=== PATIENT | male | born 1965 | race Caucasian/White ===

== ENCOUNTER 2022-03-28 07:38 | Emergency (ER) | payer OTHER, SELFPAY ==
--- NOTE | ~2022-03-28 | CT_ITS ---
EXAMINATION: CT ABDOMEN AND PELVIS WITH CONTRAST CLINICAL INFORMATION: Perirectal or perianal abscess COMPARISON: None TECHNIQUE: Multidetector volumetric images were obtained from the superior aspect of the liver through the pubic symphysis following administration 85 mL of Omnipaque 350 intravenous contrast. Sagittal and coronal reformatted images were obtained on the technologist's workstation. Oral contrast: Yes This CT examination was performed using dose optimization techniques as appropriate, variously including the following: *Automated exposure control *Adjustment of mA and/or kV according to patient size (this includes techniques or standardized protocols for targeted exams where dose is matched to indication/reason for exam; i.e. extremities or head) *Use of iterative reconstruction technique DLP: 690 mGy-cm FINDINGS: LUNG BASES: The visualized lung bases are unremarkable. LIVER, GALLBLADDER, AND BILIARY TREE: The liver is normal in size, shape, and attenuation. No focal hepatic lesion or biliary ductal dilatation is present. The gallbladder is unremarkable with no evidence of radiopaque gallstones, gallbladder wall thickening, or obvious pericholecystic inflammatory changes. PANCREAS: Unremarkable. SPLEEN: Unremarkable. ADRENAL GLANDS: Unremarkable. KIDNEYS AND URETERS: There are bilateral renal cysts. No imaging follow-up needed. The kidneys are otherwise unremarkable. BLADDER: Unremarkable. GASTROINTESTINAL TRACT: There is a 2 x 2 x 2.8 cm left lateral perirectal or perianal abscess from the 1-5 o'clock axis. Small and large bowel is unremarkable. The appendix is not identified. There are no inflammatory changes in the right lower quadrant. ABDOMINAL WALL: No significant hernia is appreciated. LYMPH NODES: Normal. VASCULAR: Unremarkable. PELVIC VISCERA: There are soft tissue foreign bodies in the right iliacus muscle and iliac bone. The prostate gland is unremarkable. OSSEOUS STRUCTURES: Soft tissue foreign body in the right iliac bone as above. Degenerative disc disease at L2-L3 and L5-S1. CT/CT abdomen pelvis w con IMPRESSION: 2 x 2 x 2.8 cm left perianal or perirectal abscess. Bilateral renal cysts. Soft tissue foreign bodies in the right iliacus muscle and iliac bone. Fleischner guidelines were followed.
[2022-03-28 07:43] VITALS: BP 148/91; PULSE 104; RESP 16; TEMP 36; O2SAT 99; BMI 28.0
--- NOTE | 2022-03-28 08:35 | ED_ITS ---
HPI - Skin/Abscess/Foreign Bdy General Chief complaint: Skin/Abscess/Foreign Body Stated complaint: cyst Time Seen by Provider: 03/28/22 07:51 Source: patient Mode of arrival: ambulatory Limitations: no limitations History of Present Illness HPI narrative: patient presents emergency department for evaluation of a cyst to his buttock with onset days ago. He reports a history of a similar 4 years ago and he wait ed too long and had to have the cyst cut open and drained. He reports that it is painful to sit, has not had any active drainage, avoiding having a bowel movement because it hurts to strain. Denies fevers, chills, nausea, vomiting, diarrhea, constipation, abdominal pain, additional skin lesions. Onset (ago): day(s) Location: buttocks Severity scale (1-10): 8 Quality: constant Pain Consistency: constant Relieving factors: none Exacerbating factors: movement ( Prolonged sitting) Context: none Associated symptoms: denies other symptoms Treatments prior to arrival: none Related Data Previous Rx's Medication Instructions Recorded cephalexin 500 mg capsule 500 mg PO QID 7 Days #28 cap 03/28/22 docusate sodium 100 mg capsule 100 mg PO BID 7 Days #14 cap 03/28/22 (Colace) doxycycline hyclate 100 mg tablet 100 mg PO BID 7 Days #14 tab 03/28/22 oxycodone 5 mg tablet 5 mg PO Q8H PRN #10 tab 03/28/22 Allergies Allergy/AdvReac Type Severity Reaction Status Date / Time No Known Allergies Allergy Verified 03/28/22 07:42 Review of Systems Review of Systems: Constitutional: No weight loss, fever, chills, weakness or fatigue. Skin: positive buttock cyst. No rash or itching. Cardiovascular: No chest pain, chest pressure or chest discomfort. No palpitations or pedal edema. Respiratory: No shortness of breath, cough or sputum production. Gastrointestinal: No anorexia, nausea, vomiting or diarrhea. No abdominal pain or blood in stool. Genitourinary: No burning micturition. No urinary frequency or incontinence. Musculoskeletal: No muscle pain, back pain, joint pain or stiffness. Psychiatric: No depression or anxiety. Yes all other systems are reviewed and are negative PMFSH Past Medical History Attestation statement: The following information was validated with the patient. Source: old records reviewed Medical History No known health problems Social History Social History Advance Directives: No Advance Directives Information Provided: No Physical Exam Vital Signs: Vital Signs: Last Vital Signs Temp 98.1 F 03/28/22 12:07 Pulse 64 03/28/22 12:07 Resp 16 03/28/22 12:07 BP 120/79 03/28/22 12:07 Pulse Ox 97 03/28/22 12:07 BMI result Body Mass Index 28.0 Vital signs have been reviewed and appeared to be correct. hypertensive. Mild tachycardia.? Respiration rate normal. Temperature normal.? Oxygen saturation normal. Appearance: Alert.?Oriented to person, place and time. No acute distress.?Normal affect. Eyes: Pupils equal, round and reactive to light.? ENT: Pharynx normal.?? Neck: Normal inspection.? Neck supple.?? CVS: Heart sounds normal. Normal heart rate and rhythm.? Pulses normal.?? Respiratory: No respiratory distress.? Lung sounds clear to auscultation bilaterally?? Abdomen: Soft and non-tender. Normoactive bowel sounds. No pulsatile mass.?? Rectum: palpable induration to the left anal rugae, no erythema, fluctuance Skin: Skin warm and dry.? Normal skin color.?? Extremities: No lower extremity edema. Neuro: Moves all extremities spontaneously. Sensation intact bilaterally. CN II- XII intact. No focal neuro deficits. Ambulates with normal steady gait. Course Course Course Narrative: Patient is a 56-year-old male with no significant past medical history presentin g to the emergency department for evaluation of a cyst to buttock, physical exam concerning for perirectal versus perianal abscess, will obtain CBC, BMP, CT of the abdomen and pelvis to further evaluate. Reevaluation(s) Reevaluation #1: CBC reveals leukocytosis 13.2., BMP overall. Awaiting CT of the abdomen and pelvis time. Pain has improved after receiving Toradol. Time: 11:00 Reevaluation #2: CT of the abdomen and pelvis reveals a left perianal or perirectal abscess, consult placed to on-call surgery Dr. Hernández, Recommend incision and drainage bedside no outpatient follow-up in General surgery office in 1 week. Blood cultures and lactic acid obtain. ordered ceftriaxone 2 g IV Time: 14:33 Reevaluation #3: lactic acid was 1.6. remains hemodynamically stable, afebrile, no tachycardia. incision and drainage performed under aseptic technique, patient tolerated pr ocedure well, moderate amount of purulent drainage removed. Clean dry dressing applied. Discussed plan of care with patient for discharge home, oral antibiotics including Keflex and doxycycline for 1 week. Provided with Colace to take twice daily, advised Tylenol and ibuprofen as needed for pain, oxycodone to be used as needed for severe pain, MASS PAT checked. Provided with a work note. Provided contact information for general surgery office to schedule follow-up visit in 1 week. Discussed reasons to return back to the emergency department. All questions were answered and patient was discharged home with his in stable condition. Time: 16:00 MDM - Skin/Abscess/Foreign Bdy Medical Records Attestation: I reviewed the patient's medical records. Lab Data Attestation: I reviewed the patient's lab results. Result diagrams: 03/28/22 09:26 03/28/22 11:39 Labs: Lab Results 03/28/22 03/28/22 03/28/22 Range/Units 09:26 11:39 15:32 WBC 13.2 H (4.8-10.8) X10*3/uL RBC 4.72 (4.60-5.80) X10*6/uL Hgb 15.4 (14.0-18.0) g/dl Hct 46.8 (42.0-52.0) % MCV 99.2 H (80.0-98.0) fL MCH 32.6 (27.0-33.0) pg MCHC 32.9 (31.0-36.0) g/dl RDW 12.4 (11.0-16.0) % Plt Count 415 H (160-400) X10*3/uL MPV 8.8 L (9.4-12.4) fL Immature Gran % (Auto) 0.3 (0.0-0.4) % Neut % (Auto) 67.2 (45-73) % Lymph % (Auto) 17.4 L (20-40) % [place] % (Auto) 14.2 H (2-11) % Eos % (Auto) 0.5 (0-4) % Baso % (Auto) 0.4 (0-2) % Lymph # (Auto) 2.3 (1.2-4.9) X10*3/uL [place] # (Auto) 1.9 H (0.1-1.2) X10*3/uL Eos # (Auto) 0.1 (0.0-0.4) X10*3/uL Baso # (Auto) 0.1 (0.0-0.2) X10*3/uL Abs Immat Gran (auto) 0.04 H (0.00-0.03) X10*3/uL Absolute Neuts (auto) 8.9 H (2.0-8.3) x10*3/uL Absolute Nucleated RBC 0.000 (0.0-0.012) X10*3/uL Nucleated RBC % (auto) 0.0 (0.0-0.2) /100WBC Smear Tech's Comments VERIFIED Sodium 139 (135-145) mmol/L Potassium 4.1 (3.3-5.1) mmol/L Chloride 107 (96-108) mmol/L Carbon Dioxide 25 (22-29) mmol/L Anion Gap 11 L (12-20) BUN 8 L (9-16) mg/dL Creatinine 0.88 (0.5-1.4) mg/dL Estim Creat Clear Calc 99.5 Estimated GFR > 60 Random Glucose 93 (60-115) mg/dL Lactic Acid 1.6 (0.5-2.0) mmol/L Calcium 9.2 (8.4-10.2) mg/dL Imaging Data CT scan - abdomen: Radiologist's impression: CT/CT abdomen pelvis w con IMPRESSION: 2 x 2 x 2.8 cm left perianal or perirectal abscess. Bilateral renal cysts. Soft tissue foreign bodies in the right iliacus muscle and iliac bone. Fleischner guidelines were followed. Procedures Abscess I/D Site: geovani-rectal Side (if applicable): left Local Anesthetic: lidocaine 1% Amount of anesthesia used (mL): 5 Technique: incised with blade Irrigation: Yes Packing used?: none Discharge Plan Discharge Clinical Impression: Perianal abscess Patient Disposition: Home, Self-Care Instructions: Abscess (ED), Incision and Drainage (ED) Additional Instructions: You have been given a new prescription for 2 antibiotics, please complete the entire course of this. You should return to the emergency department if you develop severe worsening pain, redness, swelling, or drainage from the site. You will need to follow up in the general surgeon's office in 1 week, you have been given their contact information please call their office tomorrow to schedule a follow-up visit. You may use Tylenol or ibuprofen as needed for pain. If neither of these are controlling your pain you may use the oxycodone, this is an opiate medication and it may be addictive please use this medication with caution. Do not drive or operate machinery after taking this medication. You have also been given a prescription for Colace, this is a stool softener, you should take it twice a day to help loosen your stools so that you do not have to strain to have a bowel movement. Prescriptions: New cephalexin 500 mg capsule 500 mg PO QID 7 Days Qty: 28 0RF doxycycline hyclate 100 mg tablet 100 mg PO BID 7 Days Qty: 14 0RF docusate sodium [Colace] 100 mg capsule 100 mg PO BID 7 Days Qty: 14 0RF oxycodone 5 mg tablet 5 mg PO Q8H PRN (Reason: pain) Qty: 10 0RF Referrals: Freddy Hernández MD [Physician] - 1 week Stand Alone Forms: Work/School Release Interventions: ED Discharge Assessment Last Done: 03/28/22 17:03 Discharge Date/Time: 03/28/22 17:06
[2022-03-28] MEDS: Ketorolac Tromethamine 30 MG/ML VIAL IVPUSH (09:28)
[2022-03-28 09:35] LABS: Basophils Absolute Auto 0.1 X10*3/uL (0.0-0.2); Basophils Percent Auto 0.4 % (0-2); Eosinophils Absolute Auto 0.1 X10*3/uL (0.0-0.4); Eosinophils Percent Auto 0.5 % (0-4); Hematocrit 46.8 % (42.0-52.0); Hemoglobin 15.4 g/dl (14.0-18.0); Imm Gran Abs Auto 0.04 X10*3/uL (0.00-0.03); Imm Gran Pct Auto 0.3 % (0.0-0.4); Lymphocytes Absolute Auto 2.3 X10*3/uL (1.2-4.9); Lymphocytes Percent Auto 17.4 % (20-40); MANUAL DIFF FLAG SCAN; Mean Corpuscular HGB Conc 32.9 g/dl (31.0-36.0); Mean Corpuscular Hemoglobin 32.6 pg (27.0-33.0); Mean Corpuscular Volume 99.2 fL (80.0-98.0); Mean Platelet Volume 8.8 fL (9.4-12.4); Monocytes Absolute Auto 1.9 X10*3/uL (0.1-1.2); Monocytes Percent Auto 14.2 % (2-11); Neutrophils Absolute Auto 8.9 x10*3/uL (2.0-8.3); Neutrophils Percent Auto 67.2 % (45-73); Platelet Count 415 X10*3/uL (160-400); Red Blood Count 4.72 X10*6/uL (4.60-5.80); Red Cell Distribution Width 12.4 % (11.0-16.0); SCAN SMEAR FLAG 1; White Blood Count 13.2 X10*3/uL (4.8-10.8)
[2022-03-28 09:56] LABS: SLIDE REVIEW VERIFIED
[2022-03-28 12:06] LABS: Anion Gap 11 (12-20); Blood Urea Nitrogen 8 mg/dL (9-16); Calcium 9.2 mg/dL (8.4-10.2); Carbon Dioxide 25 mmol/L (22-29); Chloride 107 mmol/L (96-108); Creatinine Clr Calc Pharmacy 99.5; Estimated Glomerular Filt Rate > 60; Glucose Random 93 mg/dL (60-115); Potassium 4.1 mmol/L (3.3-5.1); Sodium 139 mmol/L (135-145)
[2022-03-28 12:07] VITALS: BP 120/79; PULSE 64; RESP 16; TEMP 36.7; O2SAT 97
[2022-03-28] MEDS: iohexoL 350 MG/ML 100 ML INFUS..BTL IV (12:51)
[2022-03-28] MEDS: oxyCODONE HCl Immed Release 5 MG TABLET PO (15:03)
[2022-03-28] MEDS: Lidocaine HCl 2 % MPF 5 ML VIAL SUBCUT ×2 (15:04→15:05)
[2022-03-28] MEDS: Lidocaine 4 % Cream KIT 1 APPL TOPICAL (15:11)
[2022-03-28] MEDS: cefTRIAXone sodium 2 GM in 0.9 % Sodium Chloride 50 ML IV (15:49)
[2022-03-28 15:51] LABS: Lactic Acid 1.6 mmol/L (0.5-2.0)
[2022-03-28] MEDS: 0.9 % Sodium Chloride 1,000 ML 999 ML IVCONT (15:53)
== END 2022-03-28 17:06 | disposition home or self-care (01) ==
PROVIDERS: Nurse Practitioner Family; Physician Assistant Medical; Emergency Provider Emergency Medicine
DX: K61.1 Rectal abscess (principal); M54.50 Low back pain, unspecified; R10.9 Unspecified abdominal pain; Z79.899 Other long term (current) drug therapy
CPT/HCPCS: 36415; 45005; 74177; 80048; 83605; 85025; 87040; 96365; 96375; 99284; J0696; J1885; Q9967

== ENCOUNTER 2023-07-05 23:36 | Emergency (ER) | payer OTHER, SELFPAY ==
[2023-07-05 23:57] VITALS: BP 140/86; PULSE 108; RESP 16; TEMP 36.7; O2SAT 97; BMI 28.8
[2023-07-06 01:58] VITALS: BP 132/72; PULSE 82; RESP 16; TEMP 36.7; O2SAT 98
--- NOTE | 2023-07-06 02:27 | ED.SKABFB ---
HPI - Skin/Abscess/Foreign Bdy General Chief complaint: Skin/Abscess/Foreign Body Stated complaint: Cyst on butt Time Seen by Provider: 07/06/23 02:27 Source: patient Mode of arrival: ambulatory Limitations: no limitations History of Present Illness HPI narrative: Patient with History of recurrent perirectal abscess last 2 days post I&D comes in for 3 days of swelling in the left perirectal area, no fever Related Data Previous Rx's Medication Instructions Recorded cephalexin 500 mg capsule 500 mg PO QID 7 days #28 caps 03/28/22 docusate sodium 100 mg capsule 100 mg PO BID 7 days #14 caps 03/28/22 (Colace) doxycycline hyclate 100 mg tablet 100 mg PO BID 7 days #14 tabs 03/28/22 oxycodone 5 mg tablet 5 mg PO Q8H PRN pain #10 tabs 03/28/22 doxycycline hyclate 100 mg tablet 100 mg PO BID #20 tabs 07/06/23 metronidazole 500 mg tablet 500 mg PO TID #30 tabs 07/06/23 Allergies Allergy/AdvReac Type Severity Reaction Status Date / Time No Known Allergies Allergy Verified 03/28/22 07:42 Review of Systems Review of Systems: Yes all other systems are reviewed and are negative [facility] Past Medical History Medical History No known health problems Social History Social History Advance Directives: No Advance Directives Information Provided: Yes Physical Exam Vital Signs: Vital Signs: Last Vital Signs Temp 99.5 F 07/06/23 03:42 Pulse 72 07/06/23 03:42 Resp 16 07/06/23 03:42 BP 133/74 07/06/23 03:42 Pulse Ox 98 07/06/23 03:42 O2 Del Method Room Air 07/06/23 03:42 BMI result Body Mass Index 28.8 Appearance: Alert. Oriented X3. No acute distress. CVS: Normal heart rate and rhythm. Pulses normal. Respiratory: No respiratory distress. Equal air entry bilateral, no wheezing/rales/rhonchi Abdomen: Soft and nontender. Bowel sounds are present, no mass palpable, no CVA tenderness Fluctuant 4 x 4 cm tender left gluteal swelling near the rectum Skin: Skin warm and dry. Normal skin color. Normal skin turgor. Extremities: No lower extremity edema. No calf tenderness Neuro: Oriented X 3. No motor deficit. No sensory deficit.No cerebellar signs , cranial nerves II-XII intact Medications Administered Discontinued Medications Generic Name Dose Route Start Last Admin Trade Name Freq PRN Reason Stop Dose Admin Doxycycline Monohydrate 100 mg 07/06/23 03:00 07/06/23 03:17 Doxycycline Monohydrate 100 Mg Capsule PO 07/06/23 03:01 100 mg ONCE ONE Administration Lidocaine HCl 20 ml 07/06/23 02:59 07/06/23 04:14 Lidocaine Hcl 2 % 20 Ml Vial INFILTRATI 07/06/23 03:00 Not Given ONCE ONE Metronidazole 500 mg 07/06/23 03:00 07/06/23 03:17 Metronidazole 500 Mg Tablet PO 07/06/23 03:01 500 mg ONCE ONE Administration Medical Decision Making Medical Decision Making MDM Narrative: Patient recurrent perirectal abscesses I and D was done and good amount of pus removed patient felt much better discharge patient on Flagyl and doxycycline Procedures Abscess I/D Site: geovani-rectal Side (if applicable): left Local Anesthetic: lidocaine 2% Amount of anesthesia used (mL): 5 Technique: incised with blade Amount of fluid expressed (mL): 30 Sent for culture/gram staining?: No Irrigation: No Packing used?: none Discharge Plan Discharge Clinical Impression: Abscess, perirectal Patient Disposition: Home, Self-Care Instructions: Abscess Incision and Drainage (DC) Additional Instructions: Local care as advised Take antibiotic as prescribed Follow up with PCP if not better Prescriptions: New doxycycline hyclate 100 mg tablet 100 mg PO BID Qty: 20 0RF metronidazole 500 mg tablet 500 mg PO TID Qty: 30 0RF No Action cephalexin 500 mg capsule 500 mg PO QID 7 Days Qty: 28 0RF doxycycline hyclate 100 mg tablet 100 mg PO BID 7 Days Qty: 14 0RF docusate sodium [Colace] 100 mg capsule 100 mg PO BID 7 Days Qty: 14 0RF oxycodone 5 mg tablet 5 mg PO Q8H PRN (Reason: pain) Qty: 10 0RF Interventions: ED Discharge Assessment Last Done: 07/06/23 04:24 Discharge Date/Time: 07/06/23 04:25
[2023-07-06] MEDS: metroNIDAZOLE 500 MG TABLET PO (03:17)
[2023-07-06] MEDS: Doxycycline Monohydrate 100 MG CAPSULE PO (03:17)
[2023-07-06 03:42] VITALS: BP 133/74; PULSE 72; RESP 16; TEMP 37.5; O2SAT 98
--- NOTE | 2023-07-06 03:49 | MHC.EDTECH ---
THIS PCT SET UP AND ASSIST PROVIDER WITH PATIENT ABSCESS ,VITALS SIGN TAKEN .
--- NOTE | 2023-07-06 04:15 | PC.NURSE ---
pt up walking around waiting to be discharged. skin pink warm and dry, no s/s of distress.
== END 2023-07-06 04:25 | disposition home or self-care (01) ==
PROVIDERS: Emergency Provider Internal Medicine
DX: K61.1 Rectal abscess (principal)
CPT/HCPCS: 46040; 99283; 99284